=== PATIENT | female | born 1955 | race Caucasian/White ===

== ENCOUNTER → 2016-10-21 | Outpatient (CLI) | payer OTHER ==
[~2016-10-21] MED LIST: AGM875 PO
[2016-10-21 12:47] LABS: ESTIMATED AVERAGE GLUCOSE 140 mg/dl; HA1C FLAG Normal (Normal)
[2016-10-21 12:48] LABS: CALCIUM 9.2 mg/dl (8.5-10.1)
[2016-10-21 12:49] LABS: ALT/SGPT 33 U/L (12-78); BLOOD UREA NITROGEN 20 mg/dl (7-18); CARBON DIOXIDE 24 mmol/L (21-32); CHLORIDE 107 mmol/L (98-107); CHOLESTEROL 182 mg/dl (0-200); CREATININE 0.78 mg/dl (0.60-1.20); GLUCOSE 125 mg/dl (70-99); POTASSIUM 4.3 mmol/L (3.5-5.1); SODIUM 141 mmol/L (136-145); TRIGLYCERIDES 130 mg/dl (0-150); VERY LOW DENSITY LIPOPROT CALC 26 mg/dl
[2016-10-21 13:04] LABS: ALKALINE PHOSPHATASE 53 U/L (45-117); AST/SGOT 16 U/L (15-37); CHOLESTEROL/HDL RATIO 3.6; HDL CHOLESTEROL 51 mg/dl; LDL CHOLESTEROL CALCULATED 105 mg/dl; THYROID STIMULATING HORMONE 0.009 uIu/ml (0.300-4.500)
== END | disposition home or self-care (01) ==
LOC: C.LABPVFM 07:39
PROVIDERS: ATTEND Family Medicine
DX: E11.9 Type 2 diabetes mellitus without complications (principal); R94.6 Abnormal results of thyroid function studies; N39.41 Urge incontinence; E78.5 Hyperlipidemia, unspecified; R51 Headache

== ENCOUNTER → 2016-10-22 | Outpatient (CLI) | payer OTHER ==
[2016-10-22 14:21] LABS: RATIO 8.4 mcg/mg (0-30.0)
== END | disposition home or self-care (01) ==
LOC: C.LABPVFM 12:53
PROVIDERS: ATTEND Family Medicine
DX: E78.5 Hyperlipidemia, unspecified (principal); E11.9 Type 2 diabetes mellitus without complications; R94.6 Abnormal results of thyroid function studies; R51 Headache; N39.41 Urge incontinence

== ENCOUNTER → 2016-12-10 | Outpatient (CLI) | payer OTHER ==
--- NOTE | 2016-12-10 13:09 | MAMMOGRAPHY REPORT ---
BILATERAL DIGITAL SCREENING MAMMOGRAM WITH CAD: 12/10/2016 CLINICAL HISTORY: Routine screening. TECHNIQUE: Bilateral CC and MLO views were obtained. Current study was also evaluated with a Compute r Aided Detection (CAD) system. COMPARISON: Comparison is made to exams dated: 12/05/2015 mammogram, 11/29/2014 mammogram, 11/23/2013 m ammogram, 11/09/2012 mammogram, 11/05/2011 mammogram - [facility], and 01/13/2008. BREAST COMPOSITION: The tissue of both breasts is extremely dense, which lowers the sensitivity of m ammography. FINDINGS: There are mild vascular calcifications in the breast. Numerous bilateral benign rim calci fications and punctate microcode calcifications. A stable ribbon shaped metallic biopsy marker in th e 3:00 right breast. No new suspicious mass, architectural distortion or cluster of microcalcificati ons is seen. IMPRESSION: ACR BI-RADS CATEGORY 1: NEGATIVE There is no mammographic evidence of malignancy. A 1 year screening mammogram is recommended. The pa tient will receive written notification of the results. Approximately 10% of breast cancers are not detected with mammography. A negative mammographic report should not delay biopsy if a clinically suggestive mass is present. Marleni Rowland M.D. ay/:12/10/2016 09:21:24 Well Driller Helper: Chris TSE(R)(M), [facility] letter sent: Normal 1/2 BI-RADS Code: ACR BI-RADS Category 1: Negative
== END | disposition home or self-care (01) ==
LOC: C.MAMM 08:56
PROVIDERS: ATTEND Obstetrics & Gynecology
DX: Z12.31 Encounter for screening mammogram for malignant neoplasm of breast (principal)

== ENCOUNTER → 2016-12-23 | Outpatient (CLI) | payer OTHER ==
[2016-12-23 13:19] LABS: THYROID STIMULATING HORMONE 13.6 uIu/ml (0.300-4.500)
== END | disposition home or self-care (01) ==
LOC: C.LABPVFM 07:41
PROVIDERS: ATTEND Family Medicine
DX: R79.89 Other specified abnormal findings of blood chemistry (principal)

== ENCOUNTER → 2017-04-18 | Outpatient (CLI) | payer OTHER ==
[2017-04-18 13:04] LABS: ESTIMATED AVERAGE GLUCOSE 146 mg/dl; HA1C FLAG Normal (Normal)
[2017-04-18 13:31] LABS: ALT/SGPT 31 U/L (12-78); BLOOD UREA NITROGEN 23 mg/dl (7-18); BUN/CREATININE RATIO 25.2 (10-20); CALCIUM 9.1 mg/dl (8.5-10.1); CARBON DIOXIDE 27 mmol/L (21-32); CHLORIDE 105 mmol/L (98-107); CHOLESTEROL 191 mg/dl (0-200); GLUCOSE 125 mg/dl (70-99); POTASSIUM 4.2 mmol/L (3.5-5.1); SODIUM 138 mmol/L (136-145)
[2017-04-18 13:34] LABS: ALKALINE PHOSPHATASE 51 U/L (45-117); AST/SGOT 16 U/L (15-37); CHOLESTEROL/HDL RATIO 3.4; HDL CHOLESTEROL 57 mg/dl; LDL CHOLESTEROL CALCULATED 111 mg/dl; TRIGLYCERIDES 113 mg/dl (0-150); VERY LOW DENSITY LIPOPROT CALC 23 mg/dl
[2017-04-18 13:40] LABS: THYROID STIMULATING HORMONE 4.91 uIu/ml (0.300-4.500)
[2017-04-19 12:59] LABS: MICROSOMAL AB 2 IU/ML (<9)
== END | disposition home or self-care (01) ==
LOC: C.LABPVFM 07:36
PROVIDERS: ATTEND Family Medicine
DX: N39.41 Urge incontinence (principal); E11.9 Type 2 diabetes mellitus without complications; E78.5 Hyperlipidemia, unspecified; R94.6 Abnormal results of thyroid function studies

== ENCOUNTER → 2017-04-19 | Outpatient (CLI) | payer OTHER ==
[2017-04-19 13:50] LABS: RATIO 4.4 mcg/mg (0-30.0)
== END | disposition home or self-care (01) ==
LOC: C.LABPVFM 10:24
PROVIDERS: ATTEND Family Medicine
DX: N39.41 Urge incontinence (principal); E11.9 Type 2 diabetes mellitus without complications; E78.5 Hyperlipidemia, unspecified; R94.6 Abnormal results of thyroid function studies

== ENCOUNTER → 2017-12-16 | Outpatient (CLI) | payer OTHER ==
--- NOTE | 2017-12-17 13:37 | MAMMOGRAPHY REPORT ---
BILATERAL DIGITAL SCREENING MAMMOGRAM TOMOSYNTHESIS WITH CAD: 12/16/2017 CLINICAL HISTORY: Routine screening. Patient has no complaints. TECHNIQUE: The study was acquired using full field digital technology and interpreted from soft copy. Breast tomosynthesis in addition to standard 2D mammography was performed. Current study was also ev aluated with a Computer Aided Detection (CAD) system. COMPARISON: Comparison is made to exams dated: 12/10/2016 mammogram, 12/05/2015 mammogram, 11/29/2014 ma mmogram, 11/23/2013 mammogram, 11/09/2012 mammogram - [facility], and 02/08/2008. BREAST COMPOSITION: The tissue of both breasts is extremely dense, which lowers the sensitivity of ma mmography. FINDINGS: There are moderate vascular calcifications, numerous scattered benign rim calcifications an d punctate microcalcifications throughout each breast. A stable ribbon-shaped biopsy marker clip in the medial right breast. No suspicious mass, architectural distortion or cluster of microcalcificatio ns is seen. IMPRESSION: ACR BI-RADS CATEGORY 1: NEGATIVE There is no mammographic evidence of malignancy. A 1 year screening mammogram is recommended.( [id number]) The patient will receive written notification of the results. Some breast cancers are not detected with mammography. A negative mammographic report should not sachi y biopsy if a clinically suggestive mass is present. Marleni Rowland M.D. ay/:12/16/2017 14:41:00 Electrical Controls Technician: RT Altagracia(R)(M), [facility] letter sent: Normal 1/2 BI-RADS Code: ACR BI-RADS Category 1: Negative
== END | disposition home or self-care (01) ==
LOC: C.MAMM 09:02
PROVIDERS: ATTEND Family Medicine
DX: Z12.31 Encounter for screening mammogram for malignant neoplasm of breast (principal)

== ENCOUNTER 2021-05-03 06:26 | Observation (INO) ==
--- NOTE | 2021-04-24 16:31 | Anesthesiology Consultation ---
Date of Service April 24, 2021 Assessment & Plan (1) Encounter for pre-operative examination: - COVID screening: Per assessment on 04/24: Travel screen negative, no known COVID-19 positive contacts or current COVID-19 related symptoms. Patient vacci nated. Surgeon arranging preop COVID testing. Awaiting results. - Check BSG AM DOS Chart Review Chart Review: Acceptable Risk for Surgery (pending evaluation AM DOS) and Patient NOT seen in Pre Admission Testing History Surgery Operation Date: 05/03/21 11:15 Proposed Procedures p Left Total Mastectomy with Left [place] Lymph Node Biopsy - Amanuel Alberto, DO Height/Weight Height: 5 ft 2 in Weight: 58.06 kg Allergies Allergy/AdvReac Type Severity Reaction Status Date / Time codeine Allergy Mild Rash, N/V Verified 04/24/21 16:22 pollen extracts Allergy Mild Itchiness Verified 04/24/21 16:22 Penicillins AdvReac Intermediate N/V Verified 04/24/21 10:05 tramadol AdvReac Mild N/V Verified 04/24/21 16:22 POWDER IN GLOVES ONLY Allergy Intermediate Rash Uncoded 04/24/21 10:05 Medications Home Medications Medication Instructions Recorded Confirmed Last Taken aspirin 81 mg tablet,delayed 81 mg PO HS 10/19/18 04/24/21 11/01/18 21:00 release (Aspirin Low Dose) bilberry 100 mg capsule 150 mg PO BID 10/19/18 04/24/21 11/01/18 21:00 cholecalciferol (vitamin D3) 25 1,000 unit PO HS 10/19/18 04/24/21 11/02/18 08:00 mcg (1,000 unit) tablet (Vitamin D3) cinnamon bark 500 mg capsule 500 mg PO BID 10/19/18 04/24/21 11/02/18 21:00 (Cinnamon) famotidine 10 mg tablet (Pepcid AC) 10 mg PO DAILY PRN 10/19/18 04/24/21 Unknown garlic 1,000 mg capsule 1,000 mg PO DAILY 10/19/18 04/24/21 11/02/18 21:00 paapmmwyytpc-iehoawpw-mpmjrw 1 tab PO QAM 10/19/18 04/24/21 11/02/18 08:00 tablet (Multivitamin 50 Plus) omega 1-dhq-yxs-fish oil 1,000 mg 1 cap PO QAM 10/19/18 04/24/21 11/02/18 21:00 (120 mg-180 mg) capsule pyridoxine (vitamin B6) 100 mg 100 mg PO QAM 10/19/18 04/24/21 11/02/18 08:00 tablet (Vitamin B-6) loratadine 10 mg capsule 10 mg PO DAILY PRN cap 02/21/19 04/24/21 Unknown lisinopril 5 mg tablet 5 mg PO QAM #100 tab 06/06/20 04/24/21 Unknown metformin 1,000 mg tablet 1,000 mg PO BID #180 tab 01/16/21 04/24/21 Unknown oxybutynin chloride 5 mg tablet 5 mg PO BID #180 tab 04/09/21 04/24/21 Unknown glipizide 5 mg tablet, extended 5 mg PO QAM 04/24/21 04/24/21 Unknown release 24 hr Past Medical History Medical History Breast cancer New dx 03/2021 DM (diabetes mellitus), type 2 Ductal carcinoma in situ (DCIS) of left breast GERD (gastroesophageal reflux disease) Migraine Hx Seizure As child (age between 2-5) Urinary incontinence Past Family History Family History Mother Family history of diabetes mellitus Father Myocardial infarction Stroke Uncle Myocardial infarction Clotting disorder Denies family history of Ovarian cancer Prostate cancer Breast cancer Colorectal cancer Past Surgical History Surgical History History of bilateral tubal ligation History of breast biopsy WITH CLIP IN RIGHT BREAST History of laparoscopy With Fulguration of Oviducts History of tonsillectomy PONV (postoperative nausea and vomiting) Social History Smoking Status: Never smoker Do You Dip or Chew Tobacco: No Hx Alcohol Use: Yes Alcohol type: beer, wine and hard liquor alcohol intake frequency: holidays/special occasions only Hx Substance Use: No substance use type: does not use Lab Results Anesthesia Preop Results Results Anesthesia Widget: WBC 5.16 K/uL (4.8-10.8) 03/14/21 Hgb 13.9 g/dL (12.0-16.0) 03/14/21 Hct 42.0 % (37-47) 03/14/21 Plt 326 K/uL (130-400) 03/14/21 Na 136 mmol/L (136-145) 03/14/21 K 4.0 mmol/L (3.5-5.1) 03/14/21 Cl 105 mmol/L (98-107) 03/14/21 CO2 22 mmol/L (21-32) 03/14/21 BUN 22 mg/dl (7-18) H 03/14/21 Creat 0.95 mg/dl (0.6-1.2) 03/14/21 Glucose Level 303 mg/dl (70-99) H* 03/14/21 Lab Comments: Surgeon's office made aware of significantly elevated glucose. Advised potential for DOS cancellation and increased post-op complications regarding healing* Testing Electrocardiogram Date: 03/14/21 Normal sinus rhythm at 70 bpm. LAFB. Possible inferior infarct, age undetermined. PRWP, consider anterior WA versus lead placement versus LVH. No cardiopulmonary complaints noted and no physical limitations per PAT RN phone interview 04/24/21*
[~2021-05-03 06:26] MED LIST changes: -AGM875 PO; +LACTATED RINGER'S 1,000 ML IV SCH; +LR 15ML/HR IV SCH; +ceFAZolin 2000MG 2,000 MG/15 ML SYR IV SCH
[2021-05-03] MEDS ORDERED: MIDAZOLAM HCL 1 MG/ML 2ML VIAL ONE (07:54)
[2021-05-03] MEDS ORDERED: fentaNYL citrate 100 MCG/2 ML VIAL ONE ×2 (07:55)
[2021-05-03] MEDS ORDERED: BUPIVACAINE 0.25% 30 ML VIAL ONE (09:06)
[2021-05-03] MEDS ORDERED: EPINEPHrine INJ 1 MG/ML AMP ONE (09:06)
[2021-05-03] MEDS ORDERED: SCOPOLAMINE 1 MG TDSY TD ONE ×2 (09:07→09:09)
[2021-05-03] MEDS ORDERED: ePHEDrine sulfate 50 MG/ML AMP IV PRN (09:08)
[2021-05-03] MEDS ORDERED: ONDANSETRON INJ 2 MG/ML 2 ML VIAL IV PRN ×2 (09:08→15:26)
[2021-05-03] MEDS ORDERED: ATROPINE SULFATE 0.1 MG/ML 10ML SYR IV PRN (09:08)
--- NOTE | 2021-05-03 09:46 | History & Physical Bridge Note ---
Date of Service May 03, 2021 History & Physical Bridge Note I have examined the patient, reviewed the History & Physical and in the interval since the performance of the History & Physical I have noted the following changes of clinical significance: no changes noted
[2021-05-03] MEDS ORDERED: ISOSULFAN BLUE 10 MG/ML VIAL 5 ML ONE (09:48)
[2021-05-03] MEDS ORDERED: PHENYLEPHRINE 100MCG/ML 5ML SYR ONE (10:33)
[2021-05-03] MEDS ORDERED: ONDANSETRON INJ 2 MG/ML 2 ML VIAL ONE (10:33)
[2021-05-03] MEDS ORDERED: PROPOFOL IV EMULSION 10 MG/ML 20 ML VIAL IV ONE (10:33)
[2021-05-03] MEDS ORDERED: LIDOCAINE 2% 2 ML VIAL/AMP(20MG/ML) INFIL ONE (10:33)
[2021-05-03] MEDS ORDERED: DEXAMETHASONE SOD INJ 4 MG/ML VIAL ONE (10:33)
[2021-05-03] MEDS ORDERED: ePHEDrine sulfate 50 MG/ML SYR ONE (10:33)
--- NOTE | 2021-05-03 12:34 | Operative Report ---
PG Post Operative Report Pre & Post Diagnosis Operation Date: 05/03/21 09:00 Pre-Op Diagnosis: Left breast DCIS Post-Op Diagnosis: Left breast DCIS I identified the patient and participated in the time-out.: Yes Procedure Operation Date: 05/03/21 09:00 Actual Procedures p Left total mastectomy with left axillary sentinel lymph node biopsy(Left) - Amanuel Alberto DO Surgeon Amanuel Alberto, DO Estimated Blood Loss 20 I attest to the content of the Intraoperative Record and any orders documented therein. Any exceptions are noted below.
--- NOTE | 2021-05-03 12:37 | Post Operative Brief Note ---
PG Immediate Post Op with CF Date of Surgery May 03, 2021 Pre & Post Diagnosis Operation Date: 05/03/21 09:00 Pre-Op Diagnosis: Left breast DCIS Post-Op Diagnosis: Left breast DCIS I identified the patient and participated in the time-out.: Yes Procedure Operation Date: 05/03/21 09:00 Actual Procedures p Left total mastectomy with left axillary sentinel lymph node biopsy(Left) - Amanuel Alberto DO Surgeon Amanuel Alberto DO Hse Manager Shalini Inman PA-C Estimated Blood Loss 20 Findings See Below Normal appearing axillary nodes Clips within specimen upon radiography Specimens Specimen Description: A. Left Breast, Short Silk Superior, Long Silk Lateral B. Left [place] Lymph Node #1, Hot and Blue, [id number] C. Left [place] Lymph Node #2, Hot and Blue, [id number] Drains Kyler-Khan Drain (Amanuel drain used. ) Anesthesia Type General Complications none Disposition Disposition: Recovery Room
--- NOTE | 2021-05-03 12:41 | Operative Report ---
PG Post Operative Report Pre & Post Diagnosis Operation Date: 05/03/21 09:00 Pre-Op Diagnosis: Left breast DCIS Post-Op Diagnosis: Left breast DCIS I identified the patient and participated in the time-out.: Yes Procedure Operation Date: 05/03/21 09:00 Actual Procedures p Left total mastectomy with left sentinel lymph node biopsy(Left) - Amanuel Alberto DO Surgeon Amanuel Alberto DO Cotton Washer Shalini Inman PA-C Estimated Blood Loss 20 Findings See Below Normal appearing axillary nodes Clips within specimen upon radiography Specimens A. Left Breast, Short Silk Superior, Long Silk Lateral B. Left [place] Lymph Node #1, Hot and Blue, [id number] C. Left [place] Lymph Node #2, Hot and Blue, [id number]=[id number] Drains 19 Fr Amanuel drain in mastectomy flaps Anesthesia Type General Complications none Disposition Disposition: Recovery Room Indications 65 yo female with multifocal DCIS of the left breast Description of Procedure The patient was brought to the OR and placed in the supine position with both arms abducted. At this time she underwent general endotracheal anesthesia without any problems. She was given appropriate pre-operative antibiotics. Lymphazurin was injected in a periareolar manner prior to skin prep. Her left chest and axilla were prepped and draped in the usual sterile fashion. Timeout was called. The procedure was verified as Left Total Mastectomy with left axillary sentinel lymph node biopsy. Surgical, anesthesia and nursing teams agreed and the procedure was begun. A transverse elliptical incision was made on the left breast to include the nipple areolar complex. This was carried down the the subcutaneous tissue with electrocautery. At this point skin flaps were raised with electrocautery superiorly to the clavicle, medially to the sternum, inferiorly to the inframammary fold, and laterally to the latissimus. The breast tissue was then removed from the pectoralis major muscle along the with fascia. The breast was then transected laterally and sent of as specimen. At this point our attention was turned to the right axilla for the sentinel lymph node biopsy. The neoprobe was placed into the axilla and a hot but and blue node was found and count was 1115. This was excised sharply and sent as specimen. At this point one other lymph node was found using the neoprobe. Second was hot and blue and count was 184. Placing the neoprobe in the axilla at this point revealed a count of 11. At this time the incision was irrigated until clear. Hemostasis was achieved using electrocautery. Hemostasis was complete. A #19 Portuguese Amanuel drain was introduced through a stab incision laterally on the lower skin flap. It was placed along the inferior and superior skin flap. At this time the incision was closed using 3-0 Vicryl suture at the deep dermal layer and 4-0 Monocryl in a running subcutaneous fashion in the skin. Dermabond Prineo dressing was applied. Sterile dressing was then placed over this and surgical bra. The patient was then awakened from anesthesia and extubated having remained stable throughout the entire case. Needle and sponge count were correct x 2. The physician's occupational therapist assistants was present and scrubbed for the entire case. He was essential for positioning, prepping and draping the patient, retraction and exposure, closure of the incision and placement of the dressings. I attest to the content of the Intraoperative Record and any orders documented therein. Any exceptions are noted below.
[2021-05-03] MEDS: fentaNYL citrate 100 MCG/2 ML VIAL IV PRN ×2 (13:14→13:23)
[2021-05-03] MEDS ORDERED: PROMETHAZINE HCL INJ 25 MG/ML 1 ML VIAL ONE (13:34)
[2021-05-03] MEDS ORDERED: SODIUM CHLORIDE 0.9% 50 ML BAG ONE (13:34)
[2021-05-03] MEDS ORDERED: PROMETHAZINE HCL 6.25 MG in SODIUM CHLORIDE 0.9% 50 ML IV STA (13:43)
--- NOTE | 2021-05-03 14:01 | Anesthesiology Progress Note ---
Date of Service May 03, 2021 Anesthesia Post Procedure Vital Signs Vital Signs: Temp Pulse Pulse Resp BP Pulse Ox 05/03/21 13:50 97.2 F L 67 12 159/65 H 98 05/03/21 13:40 67 13 174/67 H 98 05/03/21 13:30 86 18 149/85 H 99 05/03/21 13:20 73 13 146/62 H 99 05/03/21 13:10 57 L 12 145/61 H 98 05/03/21 13:00 65 14 156/82 H 98 05/03/21 12:50 65 18 141/86 H 98 05/03/21 12:40 97.9 F 64 18 143/79 H 100 05/03/21 07:06 98.2 F 84 20 148/70 H 98 Pain Intensity Right Shoulder: Pain Intensity: 4 Transfer of Care Handoff Completed per policy Notes Mental Status: alert / awake / arousable and participated in evaluation Patient Amnestic to Procedure: Yes Nausea / Vomiting: adequately controlled Pain: adequately controlled Airway Patency, RR, SpO2: stable & adequate BP & HR: stable & adequate Hydration State: stable & adequate Anesthetic Complications: no major complications apparent and Pt Satisfied with anesthetic care
[2021-05-03] MEDS ORDERED: MoRPHine SULFATE 4 MG/ML 1 ML CARP\\VIAL IV PRN (15:26)
[2021-05-03] MEDS ORDERED: oxyCODONE HCL IR 5 MG TAB (IMMEDIATE RELEASE) PO PRN ×2 (15:26)
[2021-05-03] MEDS ORDERED: MoRPHine SULFATE 2 MG/ML CARP IV PRN (15:26)
[2021-05-03] MEDS ORDERED: FAMOTIDINE 10 MG TABLET PO PRN (15:26)
[2021-05-03] MEDS ORDERED: CHECK SCOPOLAMINE PATCH PLACEMENT SCH (16:00)
[2021-05-03] MEDS: OXYBUTYNIN CHLORIDE 5 MG TAB PO SCH (18:07)
[2021-05-03] MEDS ORDERED: PHARMACY GLYCEMIC MGMT CONSULT PRN (19:30)
[2021-05-03] MEDS ORDERED: INSULIN GLARGINE SOLOSTAR 100 UNITS/ML 3 ML PEN SC ONE (19:45)
[2021-05-03] MEDS ORDERED: CARBOHYDRATES FOR HYPOGLYCEMIA PO PRN (19:45)
[2021-05-03] MEDS ORDERED: DEXTROSE 50% 50 ML SYRINGE IV PRN (19:45)
[2021-05-03] MEDS ORDERED: GLUCAGON FOR INJ 1 MG VIAL IM PRN (19:45)
[2021-05-03] MEDS ORDERED: GLUCOSE 10 TABS/TUBE PO PRN (19:45)
[2021-05-03] MEDS ORDERED: GLUCOSE 40% GEL 15 GM TUBE PO PRN (19:45)
[2021-05-03] MEDS: ACETAMINOPHEN 325 MG TAB PO PRN (20:14)
[2021-05-03] MEDS: INSULIN ASPART PER UNIT SC SCH ×2 (20:15→21:17)
--- NOTE | 2021-05-03 21:47 | Pharmacy Report ---
Pharmacy Glycemic Short Note 2 - Date of Service May 03, 2021 - Glycemic Short BSG Results (Last 24 hours): 05/03/21 05/03/21 05/03/21 07:02 12:44 17:05 POC Glucose 162 H 202 H 218 H 05/03/21 20:34 POC Glucose 281 H OUTPATIENT ANTIDIABETIC REGIMEN: * Metformin 1 g PO BIDM * Glipizide 5 mg PO daily * HbA1c ordered/pending ASSESSMENT: * SB is a 65 year old female with recent diagnosis of breast cancer now POD #1 s/p left total mastectomy * Dexamethasone 4 mg IV x 1 given intraoperatively * Initially no insulin orders by provider, pharmacy consulted for glycemic management this evening * Postop BSG of 218 mg/dL -> 281 mg/dL at time of first insulin administration * Will cover with aggressive weight-based Novolog overnight and one-time dose of Lantus to help cover intraoperative steroids PLAN FOR INPATIENT GLYCEMIC CONTROL: * Hold outpatient oral diabetes medications * Basal insulin * Lantus 15 units SC x 1 (~0.25 unit/kg) * Bolus insulin * NovoLog per scale ACHS or Q6hrs while NPO * Goal Range: Low 110 mg/dL - High 140 mg/dL * Correction Factor: 30 mg/dL/unit * Nutritional / Prandial insulin per carb ratio of 1 unit per 10 grams CHO consumed * ,04 checks with same parameters PLAN FOR DISCHARGE: * tbd
[2021-05-04] MEDS: INSULIN ASPART PER UNIT SC SCH ×2 (00:11→04:03)
[2021-05-04] MEDS: ACETAMINOPHEN 325 MG TAB PO PRN ×2 (00:20→08:45)
[2021-05-04] MEDS ORDERED: INSULIN ASPART PER UNIT SC SCH ×2 (02:00→08:00)
[2021-05-04 06:54] LABS: Basophils # (auto) 0.01 K/uL (0-0.2); Basophils % (auto) 0.1 %; Eosinophils # (auto) 0.07 K/uL (0-0.5); Hematocrit (blood only) 37.2 % (37-47); Hemoglobin 12.3 g/dL (12.0-16.0); Immature Granulocytes # (auto) 0.01 K/uL (0.00-0.02); Immature Granulocytes % (auto) 0.1 %; Lymphocytes # (auto) 2.01 K/uL (1.2-3.4); Lymphocytes % (auto) 27.8 %; Mean Corpuscular Hemoglobin 30.1 pg (25-34); Mean Corpuscular Hgb Conc 33.1 g/dL (32-36); Mean Corpuscular Volume 91.2 fL (80-100); Mean Platelet Volume 8.6 fL (7.4-10.4); Monocytes # (auto) 0.75 K/uL (0.11-0.59); Monocytes % (auto) 10.4 %; Neutrophils # (auto) 4.38 K/uL (1.4-6.5); Neutrophils % (auto) 60.6 %; Platelet Count 280 K/uL (130-400); RDW Coefficient of Variation 13.2 % (11.5-14.5); RDW Standard Deviation 43.8 fL (36.4-46.3); Red Blood Count 4.08 M/uL (4.2-5.4); White Blood Count 7.23 K/uL (4.8-10.8)
[2021-05-04 07:21] LABS: BUN Creatinine Ratio 17.1 (10-20); Calcium 8.8 mg/dl (8.5-10.1); Creatinine Clr Calc Pharmacy 47.7 ml/min; Est GFR (African American) 74.7 ml/min; Est GFR (Non-African American) 64.5 ml/min; Potassium 3.7 mmol/L (3.5-5.1)
[2021-05-04 07:41] LABS: Estimated Average Glucose 212 mg/dl
[2021-05-04] MEDS: OXYBUTYNIN CHLORIDE 5 MG TAB PO SCH (08:41)
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
== END 2021-05-04 11:44 | disposition home or self-care (01) ==
LOC: PACUINP 06:26 → ASU 06:26 → 3N 15:45
DX: Z79.82 Long term (current) use of aspirin; E11.9 Type 2 diabetes mellitus without complications; K21.9 Gastro-esophageal reflux disease without esophagitis; Z79.899 Other long term (current) drug therapy; D05.12 Intraductal carcinoma in situ of left breast; Z88.0 Allergy status to penicillin; Z88.8 Allergy status to other drugs, medicaments and biological substances; Z79.84 Long term (current) use of oral hypoglycemic drugs